=== PATIENT | female | born 1975 | race Hispanic/Latino ===

== ENCOUNTER → 2025-03-20 | Outpatient (CLI) | payer OTHER ==
--- NOTE | 2025-03-20 21:57 | HMCIMG ---
EXAM: CR CERVICAL SPINE, 4 VIEW CLINICAL HISTORY: Neck pain with anterior cervical fusion. COMPARISON: None provided. FINDINGS: BONES: Postoperative changes consistent with anterior cervical fusion and fixation at C3???C5 levels. Orthopedic hardware appears intact and in satisfactory alignment without evidence of loosening or failure. No acute fracture or destructive osseous lesion identified. DISCS / DEGENERATIVE CHANGES: Moderate degenerative cervical spondylosis with anterior marginal osteophytes and endplate sclerosis most pronounced at C6???C7. Associated facet joint degeneration noted at the same level. Posterior vertebral body alignment is maintained. No evidence of significant subluxation or instability. SOFT TISSUES: No prevertebral soft tissue swelling. The visualized lung apices are clear. IMPRESSION: * Postoperative changes from anterior cervical fusion and fixation at C3???C5 with hardware in satisfactory position. * Moderate degenerative cervical spondylosis with anterior marginal osteophytes, endplate sclerosis, and facet arthropathy at C6???C7. * No acute cervical spine abnormality. /Saline
== END | disposition home or self-care (01) ==
LOC: RAH 16:23
PROVIDERS: ATTEND Internal Medicine
DX: M47.812 Spondylosis without myelopathy or radiculopathy, cervical region (principal); M43.22 Fusion of spine, cervical region; M25.78 Osteophyte, vertebrae
CPT/HCPCS: 72040